=== PATIENT | male | born 1995 | race African-American/Black ===

== ENCOUNTER 2022-08-09 03:06 | Emergency (ER) | payer OTHER ==
[2022-08-09] MEDS ORDERED: ACETAMINOPHEN 325 MG TABLET (FP) PO ONE (03:11)
[2022-08-09 03:19] VITALS: BP 110/60; PULSE 68; RESP 20; TEMP 98.1; BMI 22.7
[2022-08-09] MEDS ORDERED: ACETAMINOPHEN 325 MG TABLET (FP) ONE (03:21)
== END 2022-08-09 05:09 | disposition home or self-care (01) ==
LOC: JER 03:06
DX: M25.511 Pain in right shoulder (principal)
CPT/HCPCS: 73030-TC-RT-FY; 99283-25

== ENCOUNTER 2024-02-27 12:15 | Emergency (ER) | payer OTHER ==
[2024-02-27 12:24] VITALS: BP 135/65; PULSE 65; RESP 20; TEMP 98.1; BMI 24.2
[2024-02-27 13:17] LABS: EPI CELLS 2 /uL (0-25.1); HYALINE CASTS 0 /uL (0-3.1); PH,URINE 8.5 (5.0-8.0); URINE APPEARANCE CLEAR; URINE BACTERIA 26 /uL (0-1359); URINE BILIRUBIN NEGATIVE (NEGATIVE); URINE COLOR YELLOW; URINE GLUCOSE (UA) NEGATIVE (NEGATIVE); URINE KETONE NEGATIVE (NEGATIVE); URINE LEUK ESTERASE TRACE (NEGATIVE); URINE NITRITE NEGATIVE (NEGATIVE); URINE PROTEIN NEGATIVE (NEGATIVE); URINE RBC 5 /uL (0-23.9); URINE UROBILINOGEN 0.2 mg/dL (0.2-1.0); URINE WBC 31 /uL (0-25.8)
[2024-02-27 13:39] LABS: BASO % 0.8 % (0-2.0); EOS % 2.3 % (0-4.5); HEMATOCRIT 41.3 % (35.4-49); HEMOGLOBIN 13.2 GM/dL (11.7-16.9); LYMPH % 22.2 % (8-40); MEAN CELL VOLUME 75.1 fl (80-96); MEAN PLT VOLUME 7.9 fl (7.5-11.1); MONO % 6.6 % (3.8-10.2); NEUT % 68.1 % (42.8-82.8); PLATELET COUNT 290 10^3/uL (134-434); RBC 5.49 M/mm3 (4.00-5.60); RDW 16.5 % (11.9-15.9); WHITE BLOOD COUNT 7.8 K/mm3 (4.0-10.0)
[2024-02-27 13:48] LABS: POTASSIUM 3.8 mmol/L (3.5-5.1)
[2024-02-27 13:51] LABS: BLOOD UREA NITROGEN 9.4 mg/dL (7-18)
[2024-02-27 13:54] LABS: CREATININE 0.8 mg/dL (0.55-1.3)
[2024-02-27 13:55] LABS: BILIRUBIN,TOTAL 0.5 mg/dL (0.2-1); TOT PROT 7.3 g/dl (6.4-8.2)
[2024-02-27] MEDS ORDERED: metroNIDAZOLE 250 MG TABLET ONE (13:58)
[2024-02-27] MEDS ORDERED: chlordiazePOXIDE HCL 25 MG CAPSULE ONE (13:58)
[2024-02-27] MEDS ORDERED: DOXYCYCLINE HYCLATE 100 MG CAPSULE PO ONE (13:59)
[2024-02-27] MEDS ORDERED: cefTRIAXone SODIUM 1 GM VIAL ONE (13:59)
[2024-02-27] MEDS ORDERED: LIDOCAINE HCL 1%, 10 MG/ML (20ML VIAL) ONE (14:01)
[2024-02-27] MEDS: DOXYCYCLINE HYCLATE 100 MG CAPSULE PO ONE (14:19)
[2024-02-27] MEDS: chlordiazePOXIDE HCL 25 MG CAPSULE PO ONE (14:19)
[2024-02-27] MEDS: metroNIDAZOLE 500 MG TABLET PO ONE (14:19)
[2024-02-27] MEDS ORDERED: FAMOTIDINE 20 MG TABLET ONE (15:01)
[2024-02-27] MEDS ORDERED: MAG HYDROX/AL HYDROX/SIMETH 30 ML UNIT-DOSE CUP ONE (15:02)
[2024-02-27] MEDS: FAMOTIDINE 20 MG TABLET PO ONE (15:07)
[2024-02-27] MEDS: MAG HYDROX/AL HYDROX/SIMETH -MYLANTA- ORAL SUSPENSION PO ONE (15:07)
[2024-02-27 16:33] LABS: HIV INTERPRETATION NEGATIVE (NEGATIVE)
== END 2024-02-27 17:25 | disposition home or self-care (01) ==
LOC: JER 12:15
DX: R10.12 Left upper quadrant pain (principal); R35.0 Frequency of micturition
CPT/HCPCS: 36415; 74176-TC; 80053; 81003; 82962; 83690; 85025; 86803; 87086; 87389; 99284-25